=== PATIENT | female | born 1955 | race American Indian/Alaskan Native ===

== ENCOUNTER 2016-12-17 08:42 | Day surgery (SDC) | payer OTHER ==
[2016-12-16 16:10] LABS: Hemoglobin 7.6 gm/dl (10.1-14.3)
[~2016-12-17 08:42] MED LIST: BENADRYL PO ONE; NACL 0.9% 250ML 250 ML IV ONE; TYLENOL PO ONE
[2016-12-17] MEDS ORDERED: FLUSH HEPARIN IV ONE ×2 (10:00→12:55)
[2016-12-17 13:04] VITALS: BP 126/58
== END 2016-12-17 13:18 | disposition home or self-care (01) ==
LOC: OPU 08:42
PROVIDERS: ATTEND Internal Medicine Hematology & Oncology
DX: D64.9 Anemia, unspecified (principal)
CPT/HCPCS: 36415; 36430; 85014; 85018; 86850; 86900; 86901; 86920; J1642; J7050; P9016

== ENCOUNTER 2016-12-18 13:57 | Outpatient (CLI) | payer OTHER ==
--- NOTE | 2016-12-19 09:48 | PET Report ---
PET SB TO MT SUBSEQUENT: HISTORY: Restaging of left breast cancer, monitor tumor response to therapy. TECHNIQUE: 14.8 millicuries F-18 FDG was administered intravenously. Noncontrast CT images and PET images were obtained from the skull base to the proximal thighs. Fused images were reviewed on a workstation. The patient's blood glucose level measured 84. COMPARISON: 08/21/16. FINDINGS: BRAIN: physiologic FDG uptake in the imaged brain. NECK: physiologic FDG uptake. MEDIASTINUM: physiologic FDG uptake. LUNGS: physiologic FDG uptake. PLEURA/PERICARDIUM: physiologic FDG uptake. THORACIC LYMPH NODES: The previously described left axillary lymph nodes have resolved. Hypermetabolic activity has resolved. No new thoracic adenopathy. HEPATOBILIARY: physiologic FDG uptake. Mean liver SUV measures 2.4. Mild misregistration artifact in the liver and lower chest as noted. PANCREAS: physiologic FDG uptake. SPLEEN: physiologic FDG uptake. ADRENAL GLANDS: physiologic FDG uptake. KIDNEYS/RENAL COLLECTING SYSTEMS: physiologic FDG uptake. BOWEL/MESENTERY: physiologic FDG uptake. PELVIC VISCERA: physiologic FDG uptake. ABDOMINAL/PELVIC LYMPH NODES: physiologic FDG uptake. MUSCULOSKELETAL: Bone marrow stimulation changes are identified. No focal abnormal activity. IMPRESSION: Negative PET/CT. A positive response to therapy is demonstrated since 08/21/16. The suspicious and hypermetabolic left axillary lymph nodes have resolved. No new areas of disease are appreciated.
== END 2016-12-18 13:58 | disposition home or self-care (01) ==
LOC: PET 13:57
PROVIDERS: ATTEND Internal Medicine Hematology & Oncology
DX: C50.412 Malignant neoplasm of upper-outer quadrant of left female breast (principal)
CPT/HCPCS: 78815; A9552